=== PATIENT | female | born 1985 | race Caucasian/White ===

== ENCOUNTER 2019-02-01 05:55 | Observation (INO) | payer OTHER ==
[~2019-02-01] VITALS: Ht 157.5 cm; Wt 87.1 kg
[~2019-02-01 05:55] MED LIST: ALBUAER3 IN; PREN-96 PO
[2019-02-01] MEDS ORDERED: LACTATED RINGER'S 1,000 ML IV ONE (06:45)
[2019-02-01] MEDS ORDERED: TERBUTALINE SULFATE 1 MG/ML 1ML VIAL SC ONE (06:45)
== END 2019-02-01 08:00 | disposition home or self-care (01) | DRG 833 ==
LOC: LDRP 05:55
PROVIDERS: ADMIT Obstetrics & Gynecology; ATTEND Obstetrics & Gynecology
DX: O62.9 Abnormality of forces of labor, unspecified (principal); Z91.040 Latex allergy status; Z3A.36 36 weeks gestation of pregnancy
CPT/HCPCS: 59025; 81002; 96372; G0378; J3105

== ENCOUNTER 2019-02-03 16:01 | Observation (INO) | payer OTHER | END 2019-02-03 17:43 | disposition home or self-care (01) | DRG 833 | LOC: LDRP 16:01 | PROVIDERS: ADMIT Obstetrics & Gynecology; ATTEND Obstetrics & Gynecology | DX: O24.419 Gestational diabetes mellitus in pregnancy, unspecified control (principal); O26.893 Other specified pregnancy related conditions, third trimester; R10.2 Pelvic and perineal pain; Z3A.36 36 weeks gestation of pregnancy; Z91.040 Latex allergy status | CPT/HCPCS: 59025; 76818; 81002; 82962; G0378 ==

== ENCOUNTER 2019-02-06 19:00 | Observation (INO) | payer OTHER | END 2019-02-06 20:43 | disposition home or self-care (01) | DRG 833 | LOC: LDRP 19:00 | PROVIDERS: ADMIT Specialist; ATTEND Specialist | DX: O24.410 Gestational diabetes mellitus in pregnancy, diet controlled (principal); O26.893 Other specified pregnancy related conditions, third trimester; R10.9 Unspecified abdominal pain; Z3A.37 37 weeks gestation of pregnancy; Z91.040 Latex allergy status | CPT/HCPCS: 76818; 82962; G0378 ==

== ENCOUNTER 2019-02-10 11:57 | Observation (INO) | payer OTHER ==
[~2019-02-10] VITALS: Ht 157.5 cm; Wt 91.2 kg
[2019-02-10] MEDS ORDERED: LABETALOL HCL 200 MG TAB PO ONE (18:45)
[2019-02-10 19:03] LABS: Basophils # (auto) 0 uL; Basophils % (auto) 0.3 % (0.0-2.0); Eosinophils # (auto) 0 uL; Eosinophils % (auto) 0.6 % (0.0-7.0); Hematocrit 32.3 % (36.0-46.0); Hemoglobin 10.5 g/dL (12.2-16.2); Lymphocytes # (auto) 1.6 uL; Lymphocytes % (auto) 21.9 % (10.0-50.0); Mean Corpuscular Hemoglobin 27.4 pg (28.0-32.0); Mean Corpuscular Hgb Conc. 32.4 g/dL (32.0-36.0); Mean Corpuscular Volume 84.5 fL (80.0-100.0); Monocytes # (auto) 0.6 uL; Monocytes % (auto) 8.5 % (0.0-12.0); Neutrophils % (auto) 68.7 % (37.0-80.0); Nucleated Red Blood Cells % 0.3 %; Platelet Count (auto) 163 10^3/uL (140-450); Red Blood Cells 3.82 10^6/uL (4.0-5.20); Red Cell Distribution Width 14.3 % (11.8-14.3); White Blood Cell 7.3 10^3/uL (4.4-10.8)
[2019-02-10 19:21] LABS: Albumin 2.5 g/dL (3.4-5.0); Calcium 8.3 mg/dL (8.5-10.1); INR < 0.93 (0.9-1.15); Partial Thromboplastin Time 28.4 sec (23.64-32.05); Potassium 3.7 mmol/L (3.5-5.1)
[2019-02-10 19:24] LABS: BUN/Creatinine Ratio 7.9; Bilirubin, Total 0.3 mg/dL (0.2-1.0); Total Protein 6.4 g/dL (6.4-8.2); Uric Acid 6.3 mg/dL (2.6-6.0)
== END 2019-02-10 22:20 | disposition home or self-care (01) | DRG 833 ==
LOC: LDRP 17:10
PROVIDERS: ADMIT Specialist; ATTEND Specialist
DX: O13.3 Gestational [pregnancy-induced] hypertension without significant proteinuria, third trimester (principal); O24.419 Gestational diabetes mellitus in pregnancy, unspecified control; O12.03 Gestational edema, third trimester; Z3A.37 37 weeks gestation of pregnancy
CPT/HCPCS: 36415; 59025; 76818; 80053; 81002; 82948; 82962; 84550; 85025; 85610; 85730; G0378

== ENCOUNTER 2019-02-12 07:47 | Observation (INO) | payer OTHER ==
[~2019-02-12] VITALS: Ht 149.9 cm; Wt 59.0 kg
[2019-02-12] MEDS ORDERED: LABE100T4 PO (08:17)
[2019-02-12 08:42] LABS: Protein, Urine 12.7 mg/dL (0.0-11.9)
[2019-02-12 08:44] LABS: 24 Hr. Total Protein, Urine 393.7 mg/24 Hr (<149.1)
[2019-02-12] MEDS ORDERED: LABETALOL HCL 200 MG TAB PO ONE (10:30)
== END 2019-02-12 11:40 | disposition home or self-care (01) | DRG 833 ==
LOC: LDRP 07:47
PROVIDERS: ADMIT Specialist; ATTEND Specialist
DX: O13.3 Gestational [pregnancy-induced] hypertension without significant proteinuria, third trimester (principal); O24.419 Gestational diabetes mellitus in pregnancy, unspecified control; Z3A.37 37 weeks gestation of pregnancy
CPT/HCPCS: 76818; 82962; 84156; G0378; 59025; 81002

== ENCOUNTER 2019-02-14 10:25 | Inpatient (IN) | payer OTHER | END 2019-02-17 11:05 | disposition home or self-care (01) | LOC: LDRP 10:25 | PROC: 10E0XZZ Delivery of Products of Conception, External Approach (ICD-10-PCS; principal; ~2019-02-14) | DX: O13.3 Gestational [pregnancy-induced] hypertension without significant proteinuria, third trimester (principal); Z37.0 Single live birth; O14.93 Unspecified pre-eclampsia, third trimester; O24.419 Gestational diabetes mellitus in pregnancy, unspecified control; Z3A.38 38 weeks gestation of pregnancy ==

== ENCOUNTER 2021-01-29 15:45 | Emergency (ER) | payer SELFPAY ==
[~2021-01-29] VITALS: Ht 157.5 cm; Wt 80.3 kg
[~2021-01-29 15:45] MED LIST changes: +LABE100T4 PO
[2021-01-29 16:21] LABS: Hematocrit 38.4 % (36.0-46.0); Hemoglobin 13.2 g/dL (12.2-16.2); Mean Corpuscular Hemoglobin 27.9 pg (28.0-32.0); Mean Corpuscular Hgb Conc. 34.3 g/dL (32.0-36.0); Mean Corpuscular Volume 81.2 fL (80.0-100.0); Red Blood Cells 4.72 10^6/uL (4.0-5.20); Red Cell Distribution Width 13.6 % (11.8-14.3); White Blood Cell 3.3 10^3/uL (4.4-10.8)
[2021-01-29 16:24] LABS: Band Neutrophils % (manual) 0; Basophils % (manual) 0 (0.0-2.0); Blast Cells 0; Eosinophils % (manual) 0 (0-7); Metamyelocytes % 0; Myelocytes % 0; Promyelocytes % 0; Reactive Lymphocytes 0
[2021-01-29 16:49] LABS: Albumin 3.7 g/dL (3.4-5.0); BUN/Creatinine Ratio 5.2; Calcium 8.6 mg/dL (8.5-10.1); Potassium 3.5 mmol/L (3.5-5.1)
[2021-01-29 16:51] LABS: Lymphocytes % (manual) 15 (10.0-50.0); Monocytes % (manual) 19 (0-12)
[2021-01-29 16:52] LABS: Bilirubin, Total 0.1 mg/dL (0.2-1.0); Total Protein 7.7 g/dL (6.4-8.2)
[2021-01-29 19:35] VITALS: BP 114/69
[2021-01-29 20:47] LABS: Urine Bacteria FEW /hpf (None Seen); Urine Blood Negative /uL (Negative); Urine Specific Gravity 1.021 (1.001-1.035); Urine WBC 9 /hpf (0 - 5)
== END 2021-01-29 21:10 | disposition home or self-care (01) ==
LOC: ER 15:45
DX: O23.41 Unspecified infection of urinary tract in pregnancy, first trimester (principal); O26.891 Other specified pregnancy related conditions, first trimester; R10.9 Unspecified abdominal pain; Z3A.01 Less than 8 weeks gestation of pregnancy
CPT/HCPCS: 36415; 76801; 80053; 81001; 84112; 84702; 85007; 85027